=== PATIENT | female | born 1995 | race Caucasian/White ===

== ENCOUNTER → 2025-02-07 08:27 | Outpatient (REF) | payer BC, SELFPAY | LOC: PNTC 08:27 | PROVIDERS: ATTENDING PHYSICIAN Obstetrics & Gynecology | DX: Z34.80 Encounter for supervision of other normal pregnancy, unspecified trimester (principal) | CPT/HCPCS: 36415; 86850; 86900; 86901; 96372; J2790 ==

== ENCOUNTER 2025-03-28 11:54 | Outpatient (RCR) | payer BC, SELFPAY | END 2025-03-28 23:59 | disposition home or self-care (01) | LOC: RPT 11:54 | PROVIDERS: ATTENDING PHYSICIAN Obstetrics & Gynecology; FAMILY PHYSICIAN Physician Assistant | DX: M62.89 Other specified disorders of muscle (principal); R35.1 Nocturia; R35.0 Frequency of micturition; Z73.6 Limitation of activities due to disability; Z34.02 Encounter for supervision of normal first pregnancy, second trimester | CPT/HCPCS: 97110; 97112; 97140; 97162; 97530 ==

== ENCOUNTER 2025-04-17 14:01 | Outpatient (RCR) | payer BC, SELFPAY | END 2025-04-24 12:08 | disposition home health service (06) | LOC: RPT 14:01 | PROVIDERS: ATTENDING PHYSICIAN Obstetrics & Gynecology; FAMILY PHYSICIAN Physician Assistant | DX: Z34.02 Encounter for supervision of normal first pregnancy, second trimester (principal); M62.89 Other specified disorders of muscle; R35.1 Nocturia; R35.0 Frequency of micturition; Z73.6 Limitation of activities due to disability; Z33.1 Pregnant state, incidental | CPT/HCPCS: 97110; 97112; 97140; 97530 ==

== ENCOUNTER 2025-04-20 09:34 | Inpatient (IN) | payer BC, SELFPAY ==
[2025-04-20 09:38] VITALS: BP 119/83; BMI 31.6
[2025-04-20] MEDS: LR 1000 IV ×5 (10:40→23:34)
[2025-04-20] MEDS: STADOL 1 MG IV (11:27)
[2025-04-20 11:45] LABS: Hematocrit 36.9 % (37.0-47.0); Hemoglobin 12.9 g/dL (12.0-16.0); Mean Corp Hgb Conc. 35.0 g/dL (33.0-37.0); Mean Corpuscular Volume 82.2 fL (81.0-99.0); Platelet Count 222 10^3/uL (130-400); Red Cell Dist. Width 13.2 % (11.5-14.5)
[2025-04-20] MEDS: SUBLIMAZE 100 MCG EPIDURAL (12:00)
[2025-04-20] MEDS: FENTANYL/BUPIVACAINE 100 EPIDURAL ×2 (12:00→19:08)
[2025-04-20] MEDS: BICITRA 30 ML PO (23:31)
[2025-04-20] MEDS: TYLENOL 975 MG PO (23:31)
[2025-04-20] MEDS: ANCEF 10 IV (23:31)
[2025-04-20] MEDS: ZITHROMAX INFUSION 250 IV (23:37)
[2025-04-21] MEDS: TORADOL 15 MG IV ×4 (04:20→23:04)
[2025-04-21] MEDS: PRENATAL PLUS 1 TABLET PO (08:29)
[2025-04-21] MEDS: COLACE 100 MG PO ×2 (08:29→23:04)
[2025-04-21] MEDS: TYLENOL 650 MG PO (15:33)
--- NOTE | 2025-04-21 16:39 | W.PN.ANS.POP ---
Anesthesia Post Operative
- Anesthesia Post Op Note
Vital Signs Stable-See Nursing Note: Yes
Airway Patent: Yes
Adequate Pain Control: Yes
Change in Mental Status: No
Current Postoperative Nausea & Vomiting: No
Anesthesia Complications: No
General Anesthetic Recall: No
Unplanned Admission: No
Post Op Hydration Adequate: Yes
[2025-04-22 03:38] LABS: Hematocrit 23.7 % (37.0-47.0); Hemoglobin 8.2 g/dL (12.0-16.0); Mean Corp Hgb Conc. 34.6 g/dL (33.0-37.0); Mean Corpuscular Volume 83.2 fL (81.0-99.0); Platelet Count 154 10^3/uL (130-400); Red Cell Dist. Width 13.2 % (11.5-14.5)
[2025-04-22] MEDS: TYLENOL 650 MG PO ×4 (06:14→21:46)
[2025-04-22] MEDS: MOTRIN 600 MG PO ×3 (06:14→19:42)
[2025-04-22] MEDS: COLACE 100 MG PO ×2 (08:11→19:42)
[2025-04-22] MEDS: PRENATAL PLUS 1 TABLET PO (08:11)
[2025-04-22] MEDS: FEOSOL 325 MG PO (12:53)
[2025-04-22] MEDS: RHOGAM 300 MCG IM (12:58)
[2025-04-23] MEDS: TYLENOL 650 MG PO ×4 (02:39→20:43)
[2025-04-23] MEDS: MOTRIN 600 MG PO ×4 (02:39→20:43)
[2025-04-23] MEDS: PRENATAL PLUS 1 TABLET PO (08:24)
[2025-04-23] MEDS: COLACE 100 MG PO ×2 (08:24→20:02)
[2025-04-23] MEDS: FEOSOL 325 MG PO (08:24)
[2025-04-23 13:53] LABS: Syphilis/T. pallidum Ab Reflex Negative (Negative)
[2025-04-24] MEDS: MOTRIN 600 MG PO ×2 (03:33→09:53)
[2025-04-24] MEDS: TYLENOL 650 MG PO ×2 (03:33→09:52)
[2025-04-24] MEDS: COLACE 100 MG PO (08:37)
[2025-04-24] MEDS: PRENATAL PLUS 1 TABLET PO (08:37)
[2025-04-24] MEDS: FEOSOL 325 MG PO (08:37)
--- NOTE | 2025-04-24 11:15 | W.DS.TRANS ---
DC Summary - Consulting Psychologist
-
Discharge Instructions:
Discharge Diagnosis/Procedures delivered by section for
arrest disorder; epidural ; primary LTCS
Diet No restrictions
Activity No strenuous activity
Driving Restrictions No driving for 2 weeks
Bathing Restrictions OK to Shower
Instructions:
Stand-Alone Forms: LDRP Delivery
Changes to Home Medications: No
Discharge Medications:
DC Medications w/original date entered in [facility]
diphenhydramine HCl 50 mg capsule (Unisom SleepGels) 50 mg PO HS 04/20/25
magnesium 30 mg tablet 30 mg PO DAILY 04/20/25
vitamin-ferrous fumarate 28 mg iron-folic acid 800 mcg tablet ( Tablet) 1 tab PO DAILY 04/20/25
Home Medication Changes
Pending Results: Yes
Additional Pending Results:
surgical path for placenta
Total time spent discharging patient (in min): 30
== END 2025-04-24 12:56 | disposition home or self-care (01) | DRG 788 ==
LOC: LDRP 09:34
PROVIDERS: Obstetrics & Gynecology; ADMITTING PHYSICIAN Obstetrics & Gynecology; FAMILY PHYSICIAN Physician Assistant
PROC: 10907ZC Drainage of Amniotic Fluid, Therapeutic from Products of Conception, Via Natural or Artificial Opening (ICD-10-PCS; 2025-04-20)
PROC: 10D00Z1 Extraction of Products of Conception, Low, Open Approach (ICD-10-PCS; 2025-04-21)
PROC: 3E0234Z Introduction of Serum, Toxoid and Vaccine into Muscle, Percutaneous Approach (ICD-10-PCS; 2025-04-22)
DX: O69.81X0 Labor and delivery complicated by cord around neck, without compression, not applicable or unspecified (principal); O76 Abnormality in fetal heart rate and rhythm complicating labor and delivery; F32.A Depression, unspecified; F41.9 Anxiety disorder, unspecified; O99.344 Other mental disorders complicating childbirth; K29.70 Gastritis, unspecified, without bleeding; O99.62 Diseases of the digestive system complicating childbirth; O62.1 Secondary uterine inertia; O90.81 Anemia of the puerperium; D64.9 Anemia, unspecified; Z3A.38 38 weeks gestation of pregnancy; Z37.0 Single live birth; Z67.91 Unspecified blood type, Rh negative; Z23 Encounter for immunization; Z91.030 Bee allergy status
CPT/HCPCS: 36415; 85027; 85461; 86780; 86850; 86870; 86900; 86901; 88307; J2790